=== PATIENT | male | born 1950 | race Caucasian/White ===

== ENCOUNTER → 2017-02-10 | Outpatient (CLI) | payer MEDICARE, OTHER ==
[~2017-02-10] MED LIST: ASPI81TA2 PO; GABA-586 PO; HYDR-971 PO; METF500T4 PO
--- NOTE | 2017-02-10 16:15 | KCIC ---
PROCEDURE Single-view chest. HISTORY Positive TB test COMPARISON April 20, 2015 FINDINGS Single-view of the chest is submitted. There is no infiltrate, pleural fluid, pneumothorax. Heart size is stable, within normal limits. Cervical fusion hardware is not fully included. IMPRESSION 1. There is no evidence of acute cardiopulmonary disease. There are no radiographic findings suggestive of active tuberculosis. Electronically signed by: Ashok Salazar MD (February 10, 2017 16:14:26)
== END | disposition home or self-care (01) ==
LOC: KCIC 15:50
PROVIDERS: ATTEND Family Medicine
DX: R76.11 Nonspecific reaction to tuberculin skin test without active tuberculosis (principal)
CPT/HCPCS: 71010

== ENCOUNTER → 2017-06-10 | Outpatient (CLI) | payer OTHER ==
[~2017-06-10] MED LIST changes: +ASPI-630 PO; -ASPI81TA2 PO
--- NOTE | 2017-06-11 09:51 | KCIC ---
MRI Cervical Spine Without Contrast History: Chronic neck pain, previous surgery, intermittent bilateral radiculopathy Technique: Multiplanar, multi sequential noncontrast MR imaging was performed of the cervical spine. Comparison: April 09, 2016 Findings: There is motion degradation. There again has been anterior cervical fusion C5, C6, C7. Exam does not accurately evaluate integrity of hardware. Interbody fusion is not apparent at these levels. Cervical cord caliber is within normal limits, no obvious or expansile signal abnormality allowing for motion artifact. Cervical vertebral body stature is preserved. AP alignment is similar, negligible anterior spondylolisthesis C3-4 and C7-T1. There is mild reversal of the lordotic curvature. There is some fluid associated with the right C1-C2 lateral mass articulation. C2-C3: Spinal canal and neural foramina are adequate. There is mild to moderate left facet degenerative change. C3-C4: There is left greater than right facet hypertrophic change. Central canal is borderline 10 mm. The there is again negligible disc osteophyte complex. There is mild uncovertebral degenerative change greater on the right. There is suspected mild neural foramina compromise bilaterally somewhat greater on the left. C4-C5: There is again broad posterior bulge superimposed on disc osteophyte complex, likely component of small extrusion extending slightly above the intervertebral disc space more centrally. Central canal is narrowed to approximately 7 mm somewhat greater than previously. There is uncovertebral degenerative change. There is fairly severe narrowing of the left neural foramen, likely mild/moderate narrowing proximally on the right. C5-C6: There is again posterior disc osteophyte complex/osteophytes. Central canal is narrowed to 9 to 10 mm with a somewhat greater degree of lateral recess stenosis bilaterally, left greater than right. The there is uncovertebral degenerative change. There is fairly severe left and moderate to severe right neural foramina compromise. C6-C7: There is minimal disc osteophyte complex. Central canal is borderline 10 mm. There is right uncovertebral degenerative change, likely at least mild narrowing of the right neural foramen. Left neural foramen is probably minimally narrowed. C7-T1: There is mild uncovertebral degenerative change. Spinal canal is not significantly narrowed. There is probable at least moderate narrowing of the left neural foramen, right neural foramen adequate. Impression: 1. There again has been anterior cervical fusion C5, C6, C7. 2. There is spinal stenosis to 7 mm at C4-5 somewhat greater than previously in part by bulge, lesser degree of mild spinal stenosis as described at C5-C6. 3. Accurate evaluation of the neural foramina somewhat limited due to motion, suspected multilevel neural foramina compromise as stated due to facet and uncovertebral degenerative change greatest bilaterally at C5-C6, left greater than right at C4-5, and on the left at C7-T1. Electronically signed by: Michael Salazar MD (06/11/2017 9:48 AM) [id number]
== END | disposition home or self-care (01) ==
LOC: KCIC MRI 15:54
PROVIDERS: ATTEND Family Medicine
DX: M50.223 Other cervical disc displacement at C6-C7 level (principal); M50.222 Other cervical disc displacement at C5-C6 level; M50.221 Other cervical disc displacement at C4-C5 level; M48.02 Spinal stenosis, cervical region; G89.29 Other chronic pain
CPT/HCPCS: 72141

== ENCOUNTER → 2017-07-04 | Outpatient (CLI) | payer OTHER ==
[~2017-07-04] MED LIST changes: +HYDR-2762 PO; +HYDR-963 PO; +MELO15TA23 PO; +METF-620 PO; +METH750T2 PO; +MULT1TAB52 PO; +OMEG1CAP43 PO; +OMEP40CA5 PO; +PRAM0.255 PO
--- NOTE | 2017-07-04 10:41 | HP ---
ADMIT DATE: Shaw Schneider dictating for Dr. Juan Marcelino. This is a preop H and P. DATE OF SURGERY: 07/10/2017 HISTORY OF PRESENT ILLNESS: The patient is a pleasant 66-year-old who has noticed increasing burning pain in his neck and with more significant feelings of unsteadiness with walking. He says the neck pain can radiate into his shoulders, and he notices that he is dropping objects from his hands. He rates his pain as an 8-1/2 to 9 out of 10. He says his pain in his neck becomes worse as the day progresses. He is taking [place]. PAST MEDICAL HISTORY: Arthritis, asthma, head/neck injury, diabetes. PAST SURGICAL HISTORY: Cervical surgery in 2009, Achilles tendon repair in 1990. FAMILY HISTORY: Cancer. SOCIAL HISTORY: Retired. . Does not exercise. Denies substance abuse. Denies tobacco use. Drinks coffee. ALLERGIES: No known drug allergies. CURRENT MEDICATIONS: Metformin, meloxicam, [place], gabapentin, fish oil, aspirin, fluticasone propionate, omeprazole, pramipexole, dihydrochloride, multivitamin. REVIEW OF SYSTEMS: A 12-point review of systems was obtained and is noncontributory except for that mentioned above. PHYSICAL EXAMINATION: NEUROSURGERY EXAMINATION: GENERAL APPEARANCE: Alert, pleasant, in no acute distress. HEAD: Normocephalic and atraumatic. NECK AND THYROID: Klnw-oz-gzgcivmo tenderness with palpation of posterior cervical region. SKIN: Warm and dry. MUSCULOSKELETAL: Cervical paraspinal muscle bulk is normal, cervical range of motion is normal range of motion of the upper extremities bilaterally. EXTREMITIES: No clubbing, cyanosis or edema. NEUROLOGIC: Alert and oriented x 3, normal recent and remote memory, strength 5/5 in bilateral upper and lower extremities except 4+/5 right deltoid and a 4+/5 hand grasp bilaterally. Sensory was intact to light touch in the upper and lower extremities, reflexes were present and symmetric in the upper and lower extremities bilaterally, unable to tandem walk. IMAGING: Reviewed. I reviewed her recent cervical MRI scan. On that study, the principal abnormalities are at C4-C5, with the canal now 7 mm. This has worsened since his previous scan done last year when I saw him. He also appears to have moderately severe neural foraminal narrowing at C4-C5. ASSESSMENT: 1. Spinal stenosis, cervical region. 2. Radiculopathy, lumbar region. PLAN: His pain, the stenosis and neural foraminal narrowing worsened at C4-C5. I feel the natural history is clear. I recommended anterior cervical diskectomy and fusion at this level. I spoke with him about the surgery and the risks involved including injury to the esophagus and/or carotid artery. I spoke about the technique of the surgery and the expected postoperative course. He wishes for me to go ahead. We will make the arrangements. JUAN MARCELINO MD DR: TOBI/terrell JOB#: [id number] / [id number]
== END | disposition home or self-care (01) ==
LOC: SURGPAT 13:28
PROVIDERS: ATTEND Neurological Surgery
DX: M48.02 Spinal stenosis, cervical region (principal); M54.12 Radiculopathy, cervical region; M54.16 Radiculopathy, lumbar region
CPT/HCPCS: 87641

== ENCOUNTER 2017-07-10 06:55 | Inpatient (IN) | payer OTHER ==
[2017-07-10] VITALS (9 sets, daily range): BP systolic 136–164; BP diastolic 71–103
[~2017-07-10] VITALS: Ht 188 cm; Wt 133.8 kg
[~2017-07-10 06:55] MED LIST changes: +BACITRACIN 50,000 UNIT in IV NORMAL SALINE 1000ML BAG 1,000 ML IRR ONE; +GELATIN SPONGE SIZE 100. ONE; -HYDR-963 PO; -METH750T2 PO; +THROMBIN TOPICAL 20,000 UNIT SPRAY.SYRN KIT TP ONE
[2017-07-10] MEDS ORDERED: IV RINGERS,LACTATED 1000ML 1,000 ML IV SCH (07:00)
[2017-07-10] MEDS ORDERED: fentaNYL PF VIAL 100 MCG/2 ML VIAL IV PRN ×2 (07:00→12:30)
[2017-07-10] MEDS ORDERED: LIDOCAINE 1% PF 2 ML VIAL. ID PRN (07:00)
[2017-07-10] MEDS ORDERED: PROCHLORPERAZINE 10 MG/2 ML VIAL. IV PRN (07:00)
[2017-07-10] MEDS ORDERED: HYDROmorphone 2 MG/ML VIAL IV PRN (07:00)
[2017-07-10] MEDS ORDERED: ONDANSETRON PF 4 MG/2 ML VIAL. IV PRN ×2 (07:00→12:30)
[2017-07-10] MEDS ORDERED: SUCCINYLCHOLINE 200 MG/10 ML VIAL. ONE (08:15)
[2017-07-10] MEDS ORDERED: ePHEDrine PF IN SALINE 50 MG/5 ML DISP.SYRIN IV ONE (08:15)
[2017-07-10] MEDS ORDERED: REMIFENTANIL 2 MG VIAL. IV ONE (08:15)
[2017-07-10] MEDS ORDERED: fentaNYL PF VIAL 100 MCG/2 ML VIAL ONE (08:16)
[2017-07-10] MEDS ORDERED: ROCURONIUM 100 MG/10 ML VIAL. ONE (08:26)
[2017-07-10] MEDS ORDERED: NEOSTIGMINE METHYLSULFATE 5 MG/5 ML SYRINGE. ONE (09:24)
[2017-07-10] MEDS ORDERED: GLYCOPYRROLATE 1 MG/5 ML VIAL. ONE (09:25)
[2017-07-10] MEDS ORDERED: BUPIVACAINE-EPI 0.25%-1:200000 MPF 30 ML VIAL. INJ ONE (09:43)
[2017-07-10] MEDS ORDERED: DEXAMETHASONE SOD PHOS 20 MG/5 ML VIAL. ONE (09:51)
[2017-07-10] MEDS ORDERED: ONDANSETRON PF 4 MG/2 ML VIAL. ONE (09:51)
[2017-07-10] MEDS ORDERED: PROPOFOL 100 ML IV ONE (09:51)
[2017-07-10] MEDS ORDERED: PROPOFOL 20 ML IV ONE (09:51)
[2017-07-10] MEDS ORDERED: DESFLURANE > 120 MINUTES IH ONE (09:52)
[2017-07-10] MEDS ORDERED: REMIFENTANIL 1 MG VIAL. IV ONE (10:44)
[2017-07-10] MEDS: fentaNYL PF VIAL 100 MCG/2 ML VIAL IV PRN ×6 (12:23→23:32)
[2017-07-10] MEDS ORDERED: 0.9 % SODIUM CHLORIDE 10 ML DISP.SYRIN. IV PRN (12:30)
[2017-07-10] MEDS ORDERED: CALCIUM CARBONATE 500 MG TAB.CHEW PO PRN (12:30)
[2017-07-10] MEDS ORDERED: MAGNESIUM HYDROXIDE 2,400 MG/30 ML ORAL.SUSP. PO PRN (12:30)
[2017-07-10] MEDS ORDERED: DEXTROSE 50% 25 GM / 50ML DISP.SYRIN. IV PRN (12:30)
[2017-07-10] MEDS ORDERED: diphenhydrAMINE HCL 25 MG CAPSULE PO PRN (12:30)
[2017-07-10] MEDS ORDERED: diphenhydrAMINE 50 MG/ML VIAL IV PRN (12:30)
[2017-07-10] MEDS ORDERED: MAG HYDROX/ALUMINUM HYD/SIMETH 30 ML ORAL.SUSP PO PRN (12:30)
[2017-07-10] MEDS ORDERED: ACETAMINOPHEN 325 MG TABLET. PO PRN (12:30)
[2017-07-10] MEDS ORDERED: HYDROcodone/APAP 7.5/325MG 1 TAB TABLET PO PRN (12:30)
[2017-07-10] MEDS: MORPHINE SULFATE 4 MG/ML DISP.SYRIN. IV PRN ×4 (13:14→13:50)
--- NOTE | 2017-07-10 13:30 | OP ---
DATE OF SURGERY: 07/10/2017 PREOPERATIVE DIAGNOSES: Cervical herniated disc C4-C5 with cervical spinal stenosis and cervical myelopathy. POSTOPERATIVE DIAGNOSES: Cervical herniated disc C4-C5 with cervical spinal stenosis and cervical myelopathy. OPERATION PERFORMED: Anterior cervical microdiscectomy, C4-C5; anterior cervical interbody fusion, C4-C5 with allograft bone; anterior cervical plate, C4 and C5. The operation was done with EMG monitoring, SSEP monitoring, NIMS monitoring, motor-evoked potentials, fluoroscopy and microscopic dissection. SURGEON: Juan Marcelino M.D. [employer] EQUIPMENT MECHANIC: GARRY Lua assisted with the surgery, assisted with the exposure, the microdiscectomy, placement of the interbody fusion cage, placement of plate and closure. OPERATIVE INDICATIONS: The patient is a very pleasant 66-year-old man who developed intractable neck and shoulder pain along with unsteadiness, which was progressive. He failed conservative measures. On imaging studies, he had undergone a previous fusion from C5 through C7 and this was the adjacent segment above, where there was posterior disc bulging/herniation and spinal cord compression. I recommended anterior cervical microdiscectomy and fusion. I spoke with him about the surgery, the risks, technique and the expected postoperative course and he wished for me to go ahead. DESCRIPTION OF PROCEDURE: Following general endotracheal anesthesia, the patient was positioned supine on the operating room table. The anterior cervical region was prepped and draped in a standard fashion. A GlideScope was used to intubate the patient to avoid any movement of the neck by anesthesia. The anterior cervical region was prepped and draped in the standard fashion. DIXIE hose and AV impulse boots were applied for DVT prophylaxis. A microscope was draped. Fluoroscopy was draped and brought into the field. The monitoring was established. Ancef 2 grams given less than 1 hour prior to initiation of surgery. Using fluoroscopic guidance, an incision was made in the skin crease directly over the C4-C5 interspace and dissected down to skin and subcutaneous tissue and dissected along the medial aspect of the sternocleidomastoid and carotid artery sheath down the anterior cervical vertebral body, reflecting the trachea and esophagus contralaterally. I went through the scar and exposed the superior portion of the previously placed plate as well as the C4-C5 interspace and the bottom portion of the C4 vertebral body. I removed one of the screws from the C5, C6 and C7 plate. He did have a solid fusion in this area. I placed distraction pin in this location and then one in the midline in C4. I did, at this time, place lateral retractors which I wedged in the longus colli muscle and I developed an excellent exposure and I brought in the microscope. I incised the anterior annulus with 11 blade. I performed discectomy with pituitary rongeurs. There were significant degenerative change. Posteriorly, there was spurring which I drilled away with the high-speed air drill and then behind this was extruded disc fragments in the anterior epidural space, which I began to tease back and remove. There was a large piece of cartilage as well which pushed down on the dura and I gently peeled this back with a micro blunt hook and then used the 1 and 2 mm micro Kerrison's to trim this away. There were multiple disc fragments, again which I grasped and gently teased back and removed. There was no problem with the monitoring. There were no difficulties with this portion, although it was quite delicate work. I, at this point, then could see that the dura had returned to a much more normal position. The fragments of disc had been removed. I scraped cartilaginous endplate. I placed an interbody fusion bone block measuring 7 mm, which was tapped into position after using trials to assure that it could be safely and easily placed. I then placed an anterior plate of 20 mm and four 15-mm screws and was able to buttress this plate up against the previously placed plate inferiorly and superiorly. There was significant bone spurring and I trimmed some of this away to allow the plate to move closer to the anterior surface of the bone of C4. The screws were placed and locked. I was quite pleased with the position of the plate. I irrigated copiously during this time. Prior to placement of the interbody fusion cage, I assured myself of absolutely perfect hemostasis in the anterior epidural space and that there was no bone bleeding. Then, after the plate was placed, I did remove the retractors and assured myself excellent hemostasis in the soft tissue anterior to the vertebral bodies. After assuring myself of hemostasis, I then closed the wound in layers with absorbable suture and skin was closed with 4-0 subcuticular stitch. I felt the surgery went very well. I was quite pleased. JUAN Negrito MARCELINO MD DR: Luis JOB#: [id number] / [id number] GABRIELA
[2017-07-10] MEDS: POTASSIUM CL 20MEQ-0.45% NACL 1,000 ML IV SCH (14:30)
[2017-07-10] MEDS: METHOCARBAMOL 750 MG TABLET PO SCH ×2 (14:42→21:19)
[2017-07-10] MEDS: HYDROcodone/APAP 7.5/325MG 1 TAB TABLET PO PRN (14:43)
[2017-07-10] MEDS ORDERED: PRAMIPEXOLE 0.25 MG TABLET. PO SCH (21:00)
[2017-07-10] MEDS: DOCUSATE SODIUM 100 MG CAPSULE. PO SCH (21:19)
[2017-07-11] MEDS: fentaNYL PF VIAL 100 MCG/2 ML VIAL IV PRN ×2 (02:44→08:43)
[2017-07-11 02:54] VITALS: BP 142/82
[2017-07-11] MEDS: POTASSIUM CL 20MEQ-0.45% NACL 1,000 ML IV SCH (03:50)
[2017-07-11] MEDS: HYDROcodone/APAP 7.5/325MG 1 TAB TABLET PO PRN ×2 (04:26→08:41)
[2017-07-11 06:32] VITALS: BP 135/74
[2017-07-11] MEDS ORDERED: PANTOPRAZOLE 40 MG TABLET.DR. PO SCH (07:30)
[2017-07-11] MEDS: DOCUSATE SODIUM 100 MG CAPSULE. PO SCH (08:40)
[2017-07-11] MEDS: METHOCARBAMOL 750 MG TABLET PO SCH (08:40)
[2017-07-11] MEDS ORDERED: OMEGA-3 FATTY ACIDS/FISH OIL 1,000 MG CAPSULE. PO SCH (09:00)
[2017-07-11] MEDS ORDERED: MULTIVITAMIN with MINERAL TABLET. PO SCH (09:00)
[2017-07-11] MEDS ORDERED: ASPIRIN CHEWABLE 81 MG TABLET. PO SCH (09:00)
--- NOTE | 2017-07-11 09:44 | DISCH ---
DISCHARGE INSTRUCTIONS Condition on Discharge Condition on Discharge: Stable Activity After Discharge Activity Instructions for Disc: Activity as tolerated, Avoid exertion Other activity instructions: no driving for a week Bathing Instructions: Shower-keep dressing dry Lifting Instructions after Dis: No heavy lifting, No pulling or pushing, Do not lift >10 pounds Diet after Discharge Additional Diet Restrictions: resume home diet Wound Incision Care Wound/Incision Care: Ice to area for comfort Other wound/incision instructi: may remove dressing in 48 hrs if dry then may shower- no soaking Contacting the after DC Call your doctor for: Concerns you may have Follow-Up Follow up with: Dr. Marcelino's nurse [phone] in 2 weeks ADARSH MARCELINO MD Jul 11, 2017 09:44
[2017-07-11] MEDS ORDERED: HYDR-963 PO (09:47)
[2017-07-11] MEDS ORDERED: METH750T2 PO (09:47)
[2017-07-11 11:00] VITALS: BP 135/74
--- NOTE | 2017-07-11 13:49 | PATHOLOGY ---
PATHOLOGY REPORT * * * * * * * * FINAL DIAGNOSIS: Segments of fibrocartilaginous tissue, cervical disc: - Degenerative changes. (JPM:pit; 07/11/2017) COMMENT: There is no evidence of an acute inflammatory process or malignancy. (JPM:pit; 07/11/2017) REPORT ELECTRONICALLY SIGNED BY: Bravo Alexandre M.D. DATE/TIME: 07/11/2017 13:48 * * * * * * * * GROSS PATHOLOGY: The specimen is received in formalin, labeled "Zachary Servin and cervical disc" and consists of a 1.7 x 1.1 x 0.6 cm aggregate of knox, verdugo, and red fibrocartilaginous tissue fragments. Electric Motor Control Assembler sections are submitted as A1. (ASIA; 07/10/2017) INITIAL CPT CODE(S): A; 49991 Professional services performed [place] [address] Technical services performed by [facility] at [address] [place] [address], [facility] [address], [place] [address]. SPECIMEN(S) RECEIVED: A.Cervical disc CLINICAL HISTORY: Cervical stenosis, radiculopathy PATIENT: ZACHARY SERVIN /AGE: 312/18/1950 (Age: 66) PATIENT #: [id number] ALT CASE #: SPECIMEN COLLECTION DATE: 07/10/2017 SPECIMEN RECEIVED DATE: 07/10/2017 [facility] - [address] [place] [address] - PHONE: [phone] * * * END OF REPORT * * *
--- NOTE | 2017-07-11 17:18 | HP ---
ADMIT DATE: 07/10/2017 Shaw Schneider dictating for Dr. Juan Marcelino. This is a preop H and P. DATE OF SURGERY: 07/10/2017 HISTORY OF PRESENT ILLNESS: The patient is a pleasant 66-year-old who has noticed increasing burning pain in his neck and with more significant feelings of unsteadiness with walking. He says the neck pain can radiate into his shoulders, and he notices that he is dropping objects from his hands. He rates his pain as an 8-1/2 to 9 out of 10. He says his pain in his neck becomes worse as the day progresses. He is taking [place]. PAST MEDICAL HISTORY: Arthritis, asthma, head/neck injury, diabetes. PAST SURGICAL HISTORY: Cervical surgery in 2009, Achilles tendon repair in 1990. FAMILY HISTORY: Cancer. SOCIAL HISTORY: Retired. . Does not exercise. Denies substance abuse. Denies tobacco use. Drinks coffee. ALLERGIES: No known drug allergies. CURRENT MEDICATIONS: Metformin, meloxicam, [place], gabapentin, fish oil, aspirin, fluticasone propionate, omeprazole, pramipexole, dihydrochloride, multivitamin. REVIEW OF SYSTEMS: A 12-point review of systems was obtained and is noncontributory except for that mentioned above. PHYSICAL EXAMINATION: NEUROSURGERY EXAMINATION: GENERAL APPEARANCE: Alert, pleasant, in no acute distress. HEAD: Normocephalic and atraumatic. NECK AND THYROID: Ctaj-gt-nurpebla tenderness with palpation of posterior cervical region. SKIN: Warm and dry. MUSCULOSKELETAL: Cervical paraspinal muscle bulk is normal, cervical range of motion is normal range of motion of the upper extremities bilaterally. EXTREMITIES: No clubbing, cyanosis or edema. NEUROLOGIC: Alert and oriented x 3, normal recent and remote memory, strength 5/5 in bilateral upper and lower extremities except 4+/5 right deltoid and a 4+/5 hand grasp bilaterally. Sensory was intact to light touch in the upper and lower extremities, reflexes were present and symmetric in the upper and lower extremities bilaterally, unable to tandem walk. IMAGING: Reviewed. I reviewed her recent cervical MRI scan. On that study, the principal abnormalities are at C4-C5, with the canal now 7 mm. This has worsened since his previous scan done last year when I saw him. He also appears to have moderately severe neural foraminal narrowing at C4-C5. ASSESSMENT: 1. Spinal stenosis, cervical region. 2. Radiculopathy, lumbar region. PLAN: His pain, the stenosis and neural foraminal narrowing worsened at C4-C5. I feel the natural history is clear. I recommended anterior cervical diskectomy and fusion at this level. I spoke with him about the surgery and the risks involved including injury to the esophagus and/or carotid artery. I spoke about the technique of the surgery and the expected postoperative course. He wishes for me to go ahead. We will make the arrangements. JUAN MARCELINO MD DR: TOBI/terrell JOB#: [id number] / [id number]
== END 2017-07-11 11:15 | disposition home or self-care (01) | DRG 472 ==
LOC: OPSVCIP 06:55 → 4 SOUTHEST 14:08
PROVIDERS: ADMIT Neurological Surgery; ATTEND Neurological Surgery
PROC: 0RB30ZZ Excision of Cervical Vertebral Disc, Open Approach (ICD-10-PCS; 2017-07-10)
PROC: 4A11X4G Monitoring of Peripheral Nervous Electrical Activity, Intraoperative, External Approach (ICD-10-PCS; 2017-07-10)
PROC: 0RG10K0 Fusion of Cervical Vertebral Joint with Nonautologous Tissue Substitute, Anterior Approach, Anterior Column, Open Approach (ICD-10-PCS; principal; 2017-07-10 08:30)
DX: M48.02 Spinal stenosis, cervical region (principal); M50.021 Cervical disc disorder at C4-C5 level with myelopathy; E11.9 Type 2 diabetes mellitus without complications; J45.909 Unspecified asthma, uncomplicated; M54.10 Radiculopathy, site unspecified; Z98.1 Arthrodesis status; M19.90 Unspecified osteoarthritis, unspecified site; Z80.9 Family history of malignant neoplasm, unspecified
CPT/HCPCS: 76000; 82962; 88304; C1713; J0330; J0690; J0780; J1100; J2270; J2405; J2704; J2710; J3010; J3490; J7030; J7120; 97530

== ENCOUNTER → 2017-09-16 | Outpatient (CLI) | payer OTHER ==
[~2017-09-16] MED LIST changes: -BACITRACIN 50,000 UNIT in IV NORMAL SALINE 1000ML BAG 1,000 ML IRR ONE; -GELATIN SPONGE SIZE 100. ONE; +HYDR-963 PO; +METH750T2 PO; -THROMBIN TOPICAL 20,000 UNIT SPRAY.SYRN KIT TP ONE
--- NOTE | 2017-09-16 16:14 | KCIC ---
C-SPINE 2 OR 3 VIEWS Clinical Indication: Neck stiffness post cervical fusion. Comparison: MR cervical spine without contrast the tumor 2016. Findings: There is anterior cervical fusion of C5-C7, previously seen on MR. There are interbody spacers at C5/C6 and C6/C7. Since prior study there is anterior fusion of C4-C5. There is bone graft at the disc space of C4/C5. No radiographic evidence of loosening. The prevertebral soft tissues are normal. The alignment is maintained. Straightening of normal cervical lordosis. There is multilevel facet hypertrophy. No acute fracture. IMPRESSION: 1. There has been interval anterior fusion of C4-C5. 2. Previous anterior fusion of C5-C7. 3. No acute bone abnormality. Electronically signed by: Omar Herrera MD (09/16/2017 4:10 PM) [id number]
== END | disposition home or self-care (01) ==
LOC: KCIC 14:39
PROVIDERS: ATTEND Neurological Surgery
DX: Z98.1 Arthrodesis status (principal)
CPT/HCPCS: 72040

== ENCOUNTER → 2021-02-28 | Outpatient (CLI) | payer MEDICARE ==
[~2021-02-28] MED LIST changes: +ATOR10TA60 PO; +FLUT100D2 IH; -GABA-586 PO; +GABA300C18 PO; +GLIM2TAB7 PO; -HYDR-2762 PO; +HYDR-2765 PO; +HYDR-3135 PO; +HYDR-3164 PO; -HYDR-963 PO; -HYDR-971 PO; +HYDR12.575 PO; +LISI-130 PO; -METF-620 PO; +METF10007 PO; +METF500T16 PO; -METF500T4 PO; +METH-562 PO; -METH750T2 PO; +MULT-445 PO; -MULT1TAB52 PO; +OMEP40CA45 PO; -OMEP40CA5 PO; +TRIA15OI TP
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
== END | disposition home or self-care (01) ==
LOC: PNCL 14:21
PROVIDERS: ATTEND Anesthesiology
DX: M54.2 Cervicalgia (principal); M79.602 Pain in left arm; I10 Essential (primary) hypertension; M19.90 Unspecified osteoarthritis, unspecified site; K21.9 Gastro-esophageal reflux disease without esophagitis; E11.9 Type 2 diabetes mellitus without complications; E66.9 Obesity, unspecified; E78.5 Hyperlipidemia, unspecified; J45.909 Unspecified asthma, uncomplicated; Z79.82 Long term (current) use of aspirin; Z79.84 Long term (current) use of oral hypoglycemic drugs; Z79.899 Other long term (current) drug therapy; Z98.890 Other specified postprocedural states
CPT/HCPCS: G0463

== ENCOUNTER → 2021-03-14 | Outpatient (CLI) | payer MEDICARE ==
[~2021-03-14] MED LIST changes: +IOHEXOL 180 MG/ML 10 ML VIAL. ONE; -OMEP40CA45 PO; +OMEP40CA7 PO; +methylPREDNISolone ACETATE 40 MG/ML VIAL. ONE; +methylPREDNISolone ACETATE 80 MG/ML VIAL. ONE
--- NOTE | 2021-03-14 11:15 | PDOC ---
Progress Note - Pain Clinic Date of Service: DOS: DATE: 03/14/21 TIME: 11:12 Diagnosis: Dx: Cervical radiculopathy with cervical degenerative disease and cervical postlaminectomy syndrome History or Present Illness: HPI: 70-year-old male returns for follow-up status post initial evaluation preauthorization for cervical epidural steroid injection. We had tried a Medrol Dosepak and he reports it was about 40% improved after the Medrol Dosepak patient reports still pain in the base the neck left upper extremity and shoulder as it was previously. Patient reports is a 6 on a scale of 10 is worse over the past week 6 on average 4 to sleep and is a 6 today patient ports aching and tight burning pain be radiating and severe at times in the left upper extremity. Patient reports no new motor or sensory deficits no new bowel or bladder incontinence or other complaints. Physical Exam: VS: Blood pressure 120/77 pulse 81 respirations 16 temperature is 97.9 F height is 6 feet 2 inches weight 282 pounds PE: PHYSICAL EXAMINATION: GENERAL: The patient is awake, alert, oriented, appropriate, very pleasant in d emeanor HEENT: Shows normocephalic, atraumatic. Extraocular movements are intact and symmetrical. Oral cavity: Mucous membranes moist and pink. NECK: Shows anterior throat supple without palpable lymphadenopathy noted. Swallow reflex symmetrical. CHEST: Shows normal on inspection. Breath sounds are clear bilaterally. HEART: Shows S1, S2 clear. No murmurs auscultated. ABDOMEN: Soft, nontender, nondistended. No palpable organomegaly is noted. No rebound or guarding demonstrated. BACK: Shows spine grossly in the midline. Normal-appearing cervical lordotic curvature. Cervical paraspinous muscles show symmetrical inspection with palpation some moderate tenderness diffusely in the inferior aspect the cervical paraspinous musculature as well as the superior medial trapezius more on the left than the right but symmetrical. Patient has good rotational motion of the cervical spine with lateral as well as extension flexion without significant difficulty. There is slightly increased thoracic kyphosis, some minor flattening of the lumbar lordotic curvature. EXTREMITIES: Upper extremities show deep tendon reflexes 2+ in the biceps and triceps tendons. Motor exam is 5 on a scale of 5 with right record maker strength, biceps and triceps flexion and 4/5 on the left. Peripheral pulses are 2+ radial. No peripheral edema is noted bilaterally. Upper extremities are warm and dry to touch, equal in color and appearance. SKIN: Shows warm and dry, good turgor. No edema. No sores, rashes or bruising throughout. Procedure: Procedure: Options were discussed with the patient. Patient's old chart was reviewed his his current medication regimen updated current review of systems updated today as well. We will proceed with a cervical epidural steroid injection today with fluoroscopic guidance. Risks were discussed including but not limited to: Bleeding, infection, possibility of epidural hematoma and subsequent neurological compromise, dural puncture, headaches, spinal cord and/or nerve damage, side effects of steroid medication, and poor results regarding pain control. Patient understands and wished to proceed. Patient will return to the clinic in approximately 2 weeks for follow-up, was counseled as to return appointment, activity level, and side effects to be aware of. Medication Injected: Med Injected: Procedure cervical epidural steroid injection at the C6-7 level, using local anesthetic under sterile prep and drape using C-arm fluoroscopic guidance under local anesthesia medications injected ;120 mg Depo-Medrol +5 mL normal saline and 2 mL contrast; condition at discharge is stable patient tolerated procedure well. and had no complications Condition at Discharge: Condition at Discharge: Condition at discharge stable, patient alert procedure well and had no complications. GRETA DIAZ MD Mar 14, 2021 11:14
--- NOTE | 2021-03-14 11:15 | PDOC4 ---
PROCEDURE Procedure Patient was consented for cervical epidural steroid injection. Risks were d iscussed including but not limited to: Bleeding, infection, possibility of epidural hematoma and subsequent neurological compromise, dural puncture, headaches, spinal cord and/or nerve damage, side effects of steroid medication, and poor results regarding pain control. Patient understands and wished to proceed. Procedure cervical epidural steroid injection at the C6-7 level, using local anesthetic under sterile prep and drape using C-arm fluoroscopic guidance under local anesthesia medications injected ;120 mg Depo-Medrol +5 mL normal saline and 2 mL contrast; condition at discharge is stable patient tolerated procedure well. and had no complications GRETA DIAZ MD Mar 14, 2021 11:15
== END | disposition home or self-care (01) ==
LOC: PNCL 10:11
PROVIDERS: ATTEND Anesthesiology
DX: M54.12 Radiculopathy, cervical region (principal); M96.1 Postlaminectomy syndrome, not elsewhere classified; J45.909 Unspecified asthma, uncomplicated; E66.9 Obesity, unspecified; K21.9 Gastro-esophageal reflux disease without esophagitis; M19.90 Unspecified osteoarthritis, unspecified site; E11.9 Type 2 diabetes mellitus without complications; E78.5 Hyperlipidemia, unspecified; I10 Essential (primary) hypertension; Z79.899 Other long term (current) drug therapy; Z79.84 Long term (current) use of oral hypoglycemic drugs; Z79.82 Long term (current) use of aspirin; Z98.49 Cataract extraction status, unspecified eye; Z98.52 Vasectomy status
CPT/HCPCS: 62321; J1030; J1040; Q9965

== ENCOUNTER → 2021-03-28 | Outpatient (CLI) | payer MEDICARE ==
[~2021-03-28] MED LIST changes: -IOHEXOL 180 MG/ML 10 ML VIAL. ONE; -methylPREDNISolone ACETATE 40 MG/ML VIAL. ONE; -methylPREDNISolone ACETATE 80 MG/ML VIAL. ONE
--- NOTE | 2021-03-28 10:47 | PDOC ---
Progress Note - Pain Clinic Date of Service: DOS: DATE: 03/28/21 TIME: 10:44 Diagnosis: Dx: Cervical radiculopathy with cervical degenerative disease and cervical postlaminectomy syndrome History or Present Illness: HPI: 70-year-old male returns for follow-up status post cervical epidural steroid action x1. Patient reports about 75% improvement initially for the first week and a half now about 50% improvement since that time and still about 50% improved overall patient reports the first 2 days he was doing very well after that the pain gradually returned very gradually over the last 2 weeks patient reports about 50% improvement overall with the pain the base the neck left upper extremity shoulder arm and forearm patient reports has not noticed any increased weakness in the left upper extremity and that feels better and is sleeping better at night but still wakes about once every 5 hours patient reports to increase his distance walking doing household activities doing hobbies and setting up new furniture recently was exacerbated the pain to moderate extent in the base of the neck and left upper extremity patient reports the pain is aching and dull in the neck shooting and sharp in the left arm with some tingling and some tremor as well. Patient rates his pain is a 9 on scale 10 is worse over the past week 8 on average 5 its least is 8 today. Patient reports no new motor or sensory deficits no new complaints. Physical Exam: VS: Blood pressure is 113/74 pulse 93 respirations 16 temperature 98.4 F weight is 280 pounds PE: PHYSICAL EXAMINATION: GENERAL: The patient is awake, alert, oriented, appropriate, very pleasant in demeanor HEENT: Shows normocephalic, atraumatic. Extraocular movements are intact and symmetrical. NECK: Shows anterior throat supple without palpable lymphadenopathy noted. CHEST: Shows normal on inspection. Breath sounds are clear bilaterally. HEART: Shows S1, S2 clear. No murmurs auscultated. ABDOMEN: Soft, nontender, nondistended obese. BACK: Shows spine grossly in the midline. Normal-appearing cervical lordotic curvature. There is slightly increased thoracic kyphosis, some minor flattening of the lumbar lordotic curvature. EXTREMITIES: Upper extremities show deep tendon reflexes 2+ in the biceps and triceps tendons. 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 Peripheral pulses are 2+ radial. No peripheral edema is noted bilaterally. Upper extremities are warm and dry to touch, equal in color and appearance. SKIN: Shows warm and dry, good turgor. No edema. No sores, rashes or bruising throughout. Procedure: Procedure: Options were discussed with the patient. Patient's old chart was reviewed his his current medication regimen updated current review of systems updated today as well. We will obtain preauthorization from patient's insurance provider for second cervical epidural steroid injection as patient very well with the first still with a C6-7 dermatomal distribution in the left upper extremity radicular pain. In the meantime patient will continue doing strengthening stretching exercises oral analgesics as currently. Once approved have patient return for translaminar approach C6-7 level cervical epidural steroid injection. Medication Injected: Med Injected: None Condition at Discharge: Condition at Discharge: Condition at discharge is stable. GRETA DIAZ MD Mar 28, 2021 10:47
== END | disposition home or self-care (01) ==
LOC: PNCL 10:02
PROVIDERS: ATTEND Anesthesiology
DX: M50.10 Cervical disc disorder with radiculopathy, unspecified cervical region (principal); M96.1 Postlaminectomy syndrome, not elsewhere classified; E11.9 Type 2 diabetes mellitus without complications; J45.909 Unspecified asthma, uncomplicated; E66.9 Obesity, unspecified; K21.9 Gastro-esophageal reflux disease without esophagitis; M19.90 Unspecified osteoarthritis, unspecified site; Z79.82 Long term (current) use of aspirin; Z79.84 Long term (current) use of oral hypoglycemic drugs; Z79.899 Other long term (current) drug therapy; Z98.890 Other specified postprocedural states
CPT/HCPCS: 99212; G0463

== ENCOUNTER → 2021-04-13 | Outpatient (CLI) | payer MEDICARE ==
[~2021-04-13] MED LIST changes: +IOHEXOL 180 MG/ML 10 ML VIAL. ONE; +methylPREDNISolone ACETATE 40 MG/ML VIAL. ONE; +methylPREDNISolone ACETATE 80 MG/ML VIAL. ONE
--- NOTE | 2021-04-13 09:43 | PDOC ---
Progress Note - Pain Clinic Date of Service: DOS: DATE: 04/13/21 TIME: 09:39 Diagnosis: Dx: Cervical radiculopathy with cervical degenerative disease and cervical postlaminectomy syndrome History or Present Illness: HPI: 70-year-old male returns follow-up status post cervical epidural injection x1 with about 75% improvement. Patient reports pain beginning to return not back to baseline but significantly improved still base the neck and shoulders upper extremities patient returns now for second injection today with pain in proved in the base the neck and upper extremities but still present with a constant pain with activity repetitive motions and some "shakiness" of the upper extremities patient reports is a 10 on scale 10 is worse over the past week 7 on average/and is a 7 today. Patient reports pain is intensified to some extent which is new with a cramping sensation in the arms which was not present previously patient reports no loss of motor function but significant fatigability and again "shakiness" in the upper extremities. Patient reports no new motor or sensory deficits. Physical Exam: VS: Blood pressure 135/79 pulse 88 respirations 18 temperature is 98.4 F weight is 284 pounds. PE: PHYSICAL EXAMINATION: GENERAL: The patient is awake, alert, oriented, appropriate, very pleasant in demeanor HEENT: Shows normocephalic, atraumatic. Extraocular movements are intact and symmetrical. Oral cavity: Mucous membranes moist and pink. NECK: Shows anterior throat supple without palpable lymphadenopathy noted. Swallow reflex symmetrical. CHEST: Shows normal on inspection. Breath sounds are clear bilaterally, no rales or. HEART: Shows S1, S2 clear. No murmurs auscultated. ABDOMEN: Soft, nontender, nondistended, obese. BACK: Shows spine grossly in the midline. Normal-appearing cervical lordotic curvature. Cervical paraspinous but show symmetrical inspection on palpation some moderate tenderness inferiorly in the bilateral cervical paraspinous muscles as well as the superior medial trapezius. Patient shows good rotation of motion of the cervical spine both laterally greater than 45 degrees as well as full extension full forward flexion without significant pain reported. There is slightly increased thoracic kyphosis, some minor flattening of the lumbar lordotic curvature. EXTREMITIES: Upper extremities show deep tendon reflexes 2+ in the biceps and triceps tendons. 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 Peripheral pulses are 2+ radial. No peripheral edema is noted bilaterally. Upper extremities are warm and dry to touch, equal in color and appearance. SKIN: Shows warm and dry, good turgor. No edema. No sores, rashes or bruising throughout. Procedure: Procedure: Discussed with patient. Patient's old chart was reviewed his his regimen updated current review of systems updated today as well. We will proceed with a second in the series cervical epidural steroid injection stable fluoroscopic guidance. Risks were discussed including but not limited to: Bleeding, infection, possibility of epidural hematoma and subsequent neurological compromise, dural puncture, headaches, spinal cord and/or nerve damage, side effects of steroid medication, and poor results regarding pain control. Patient understands and wished to proceed. Return to the clinic in approximate 2 weeks for follow-up, was counseled as to return appointment activity level and side effects to be aware of. Medication Injected: Med Injected: Procedure cervical epidural steroid injection at the C6-7 level, using local a nesthetic under sterile prep and drape using C-arm fluoroscopic guidance under local anesthesia medications injected ;120 mg Depo-Medrol +5 mL normal saline and 2 mL contrast; condition at discharge is stable patient tolerated procedure well. and had no complications Condition at Discharge: Condition at Discharge: Condition at discharge stable, patient alert procedure well and had no complications. GRETA DIAZ MD Apr 13, 2021 09:43
--- NOTE | 2021-04-13 09:44 | PDOC4 ---
Procedure Note: Procedure Note: He was consented for cervical epidural steroid injection. Risks were discussed including but not limited to: Bleeding, infection, possibility of epidural hematoma and subsequent neurological compromise, dural puncture, headaches, spinal cord and/or nerve damage, side effects of steroid medication, and poor results regarding pain control. Patient understands and wished to proceed. Procedure cervical epidural steroid injection at the C6-7 level, using local anesthetic under sterile prep and drape using C-arm fluoroscopic guidance under local anesthesia medications injected ;120 mg Depo-Medrol +5 mL normal saline and 2 mL contrast; condition at discharge is stable patient tolerated procedure well. and had no complications GRETA DIAZ MD Apr 13, 2021 09:44
--- NOTE | 2021-04-13 09:59 | PDOC ---
Progress Note - Pain Clinic Date of Service: DOS: DATE: 04/13/21 TIME: 09:55 Diagnosis: Dx: Lumbar radiculopathy with lumbar degenerative disease lumbar spinal stenosis Left knee joint pain with osteoarthritis History or Present Illness: HPI: 71-year-old female returns for follow-up status post preauthorization for lumbar epidural steroid injection patient obtained that now but reports that her person who drove her to the clinic has to leave soon and does not have time to stay for the procedure today. Patient reports still significant pain in the low back bilateral lower extremities posterior gluteus lateral thighs anterior thighs medial thighs posterior thighs posterior calf and anterior calves into the feet bilaterally worse with walking standing changing positions patient reports a new finding that her legs are giving out and she is actually fallen twice since her last visit patient reports her pain is aching and sharp dull tight shooting cramping and burning also in the left knee significant pain with walking and putting all of her weight on her left leg such as with stairs or curbs. Patient reports otherwise is difficult to sleep difficult with walking and standing legs are stable he still once every 2-3 hours patient reports no loss of motor function again but significant fatigability which is increasing in the lower extremities and left knee. Patient reports that the muscle relaxer she is ezequiel ing tizanidine is causing the pain actually worse when she takes at night. We discussed this and will change the medication to cyclobenzaprine 10 mg patient was given instructions as well as side effects be aware of with the medication. Physical Exam: VS: Blood pressure is 105/70 pulse 79 respirations 18 temperature 98.4 F height is 5 feet 4 inches weight is 177 pounds PE: PHYSICAL EXAMINATION: GENERAL: The patient is awake, alert, oriented, appropriate, very pleasant demeanor HEENT: Shows normocephalic, atraumatic. Extraocular movements are intact and symmetrical. Oral cavity: Mucous membranes moist and pink. NECK: Shows anterior throat supple without palpable lymphadenopathy noted. Swallow reflex symmetrical. CHEST: Shows normal on inspection. Breath sounds are clear bilaterally, no rales or rhonchi. HEART: Shows S1, S2 clear. No murmurs auscultated. ABDOMEN: Soft, nontender, nondistended, obese. BACK: Shows spine grossly in the midline. Normal-appearing cervical lordotic curvature. There is slightly increased thoracic kyphosis, some minor flattening of the lumbar lordotic curvature. Lumbar paraspinous muscles show symmetrical on inspection, on palpation shows some moderate tenderness diffusely throughout the upper, middle and lower distribution of the paraspinous muscles, but without specific trigger points, without radiation of pain. The patient has good rotational motion of the lumbar spine, both laterally as well as extension and flexion without significant difficulty. EXTREMITIES: Lower extremities show deep tendon reflexes 1+ in the patellar and tendo calcaneus tendons. Motor exam is 4 on a scale of 5 with right dorsiflexion, extension, quadriceps and hamstring flexion and 4/5 on the left. Peripheral pulses are 1+ posterior tibial. No peripheral edema is noted bilaterally. Lower extremities are warm and dry to touch, equal in color and appearance. Patient's left knee shows moderate tenderness with palpation over the medial collateral ligament as well as over the patella but with good displacement and without ratcheting or crepitus with range of motion. SKIN: Shows warm and dry, good turgor. No edema. No sores, rashes or bruising throughout. Procedure: Procedure: Options were discussed with the patient. Patient chart reviews her current medication regimen updated current review of systems updated today as well. We will hold on injection at this time as patient has a time constraint with her transportation. Patient return to clinic in approximate 2 weeks we will as scheduled we will plan on lumbar epidural steroid injection at that time. Again we will change tizanidine to cyclobenzaprine patient was given instructions well side effects aware with the medication. Medication Injected: Med Injected: None Condition at Discharge: Condition at Discharge: Condition at discharge is stable. GRETA DIAZ MD Apr 13, 2021 09:59
== END | disposition home or self-care (01) ==
LOC: PNCL 09:05
PROVIDERS: ATTEND Anesthesiology
DX: M50.10 Cervical disc disorder with radiculopathy, unspecified cervical region (principal); M96.1 Postlaminectomy syndrome, not elsewhere classified; J45.909 Unspecified asthma, uncomplicated; E11.9 Type 2 diabetes mellitus without complications; E66.9 Obesity, unspecified; K21.9 Gastro-esophageal reflux disease without esophagitis; M19.90 Unspecified osteoarthritis, unspecified site; Z79.82 Long term (current) use of aspirin; Z79.84 Long term (current) use of oral hypoglycemic drugs; Z79.899 Other long term (current) drug therapy; Z98.890 Other specified postprocedural states
CPT/HCPCS: 62321; J1030; J1040; Q9965

== ENCOUNTER → 2021-08-14 | Outpatient (CLI) | payer MEDICARE ==
[~2021-08-14] MED LIST changes: -IOHEXOL 180 MG/ML 10 ML VIAL. ONE; -methylPREDNISolone ACETATE 40 MG/ML VIAL. ONE; -methylPREDNISolone ACETATE 80 MG/ML VIAL. ONE
--- NOTE | 2021-08-14 12:03 | PDOC ---
Progress Note - Pain Clinic Date of Service: DOS: DATE: 08/14/21 TIME: 11:59 Diagnosis: Dx: Cervical radiculopathy with cervical degenerative disc disease and cervical postlaminectomy syndrome History or Present Illness: HPI: 70-year-old male returns for follow-up last seen April 13, 2021 patient did very well after cervical epidural steroid injection with about 75% improvement initially now down about 50% improvement overall in the base the neck and the bilateral upper extremities right equal to left essentially patient reports the pain is returning now over the past month or so increased with activity raising his arms over his head bilaterally as well as weightbearing repetitive motions with the upper extremities. Patient reports its difficult with sleeping as well at times but generally does not awaken him from sleep most nights. Patient reports his pain is a 10 on scale 10 is worse over the past week 9 on average 7 its least and is a 7 today. Patient reports that the pain is constant aching dull sharp and shooting in the upper extremities traveling into the forearms into the hands and arms somewhat more on the left hand than the right but presen t bilaterally with some tingling and numbness as well but no complete loss of function. Patient continues to perform daily exercises stretching strengthening as he is done from previous physical therapy instruction however the pain has been significant and persistent. Patient taking oral [id number] anti- inflammatories with approximately 10 to 20% improvement. Physical Exam: VS: Blood pressure is 139/85 pulse 81 respirations 18 temperature 98.7 F height is 6 foot 2 inches weight is 290 pounds PE: PHYSICAL EXAMINATION: GENERAL: The patient is awake, alert, oriented, appropriate, very pleasant in demeanor HEENT: Shows normocephalic, atraumatic. Extraocular movements are intact and symmetrical. NECK: Shows anterior throat supple without palpable lymphadenopathy noted. Swallow reflex symmetrical. CHEST: Shows normal on inspection. Breath sounds are clear bilaterally, distant but no rales or rhonchi. HEART: Shows S1, S2 clear. No murmurs auscultated. ABDOMEN: Soft, nontender, nondistended, obese. No palpable organomegaly is noted. BACK: Shows spine grossly in the midline. Normal-appearing cervical lordotic curvature. Cervical paraspinous muscles show symmetrical inspection, palpation some moderate tenderness diffusely bilaterally diffusely about significant radiation no trigger points no atrophy hypertrophy. Patient shows good rotation of motion with some mild tenderness with extension as well as right greater than left lateral rotation and full forward flexion is performed with some mild tenderness in the right side as well but without radiation. There is slightly increased thoracic kyphosis, some minor flattening of the lumbar lordotic curvature. EXTREMITIES: Upper extremities show deep tendon reflexes 2 in the biceps and triceps tendons. Motor exam is 5 on a scale of 5 with right securities adviser, biceps and triceps flexion and 4/5 on the left. Peripheral pulses are 2+ radial. No peripheral edema is noted bilaterally. Upper extremities are warm and dry to touch, equal in color and appearance. SKIN: Shows warm and dry, good turgor. No edema. No sores, rashes or bruising throughout. Procedure: Procedure: Options were discussed with the patient. Patient's old chart was reviewed his current medication regimen updated current review of systems updated today as well. We will preauthorize patient for cervical epidural steroid injection he did very well with these in the past. Patient continue with stretching strength exercises as well as oral analgesics and anti-inflammatories as currently. Once approved we will have him return for a translaminar C6-7 level cervical epidural steroid injection with fluoroscopic guidance. Medication Injected: Med Injected: None Condition at Discharge: Condition at Discharge: Condition at discharge is stable. GRETA DIAZ MD Aug 14, 2021 12:03
== END | disposition home or self-care (01) ==
LOC: PNCL 11:21
PROVIDERS: ATTEND Anesthesiology
DX: M50.10 Cervical disc disorder with radiculopathy, unspecified cervical region (principal); M96.1 Postlaminectomy syndrome, not elsewhere classified; J45.909 Unspecified asthma, uncomplicated; E66.9 Obesity, unspecified; K21.9 Gastro-esophageal reflux disease without esophagitis; M19.90 Unspecified osteoarthritis, unspecified site; E11.9 Type 2 diabetes mellitus without complications; Z79.82 Long term (current) use of aspirin; Z79.899 Other long term (current) drug therapy
CPT/HCPCS: 99212; G0463

== ENCOUNTER → 2021-08-24 | Outpatient (CLI) | payer MEDICARE ==
[~2021-08-24] MED LIST changes: +IOHEXOL 180 MG/ML 10 ML VIAL. ONE; +methylPREDNISolone ACETATE 40 MG/ML VIAL. ONE; +methylPREDNISolone ACETATE 80 MG/ML VIAL. ONE
--- NOTE | 2021-08-24 12:05 | PDOC ---
Progress Note - Pain Clinic Date of Service: DOS: DATE: 08/24/21 TIME: 12:01 Diagnosis: Dx: Cervical radiculopathy with cervical degenerative disease and cervical postlaminectomy syndrome History or Present Illness: HPI: 70-year-old male returns for follow-up status post cervical epidural steroid injection most recently April 13, 2021. Patient did very well with about 60% improvement overall about 75% improvement initially for 2 months and the pain is returning now to about 50 to 60% improvement level overall patient reports pain in the base the neck and shoulders upper extremities right and the left rated as a 10 on scale 10 is worse over the past week 8 on average 7 its least is a 7 today patient reports is burning aching can be constant with activity repetitive motions reading with his head flexed in the position for too long as well as repetitive motions and driving. Patient reports it wakes him from sleep only very rarely reports no loss of motor function with significant fatigability the upper extremities with repetitive motions or weight bearing and reaching. Physical Exam: VS: Blood pressure is 139/86 pulse 80 respirations 18 temperature 98.1 F height is 6 foot 2 inches weight is 289 pounds PE: PHYSICAL EXAMINATION: GENERAL: The patient is awake, alert, oriented, appropriate, very pleasant demeanor HEENT: Shows normocephalic, atraumatic. Extraocular movements are intact and symmetrical. Oral cavity: Mucous membranes moist and pink. NECK: Shows anterior throat supple without palpable lymphadenopathy noted. Swallow reflex symmetrical. CHEST: Shows normal on inspection. Breath sounds are clear bilaterally, no rales or rhonchi. HEART: Shows S1, S2 clear. No murmurs auscultated. ABDOMEN: Soft, nontender, nondistended, obese. No palpable organomegaly is noted. BACK: Shows spine grossly in the midline. Normal-appearing cervical lordotic curvature. Cervical paraspinous muscles show symmetrical inspection, palpation some moderate tenderness diffusely bilaterally diffusely without significant radiation patient is good rotation motion cervical spine both laterally as well as extension flexion without significant pain or limitation in movement. There is slightly increased thoracic kyphosis, some minor flattening of the lumbar lordotic curvature. . EXTREMITIES: Upper extremities show deep tendon reflexes 2+ in the biceps and triceps tendons. Motor exam is 4 on a scale of 5 with right r d engineer, biceps and triceps flexion and 4/5 on the left. Peripheral pulses are 2+ radial. No peripheral edema is noted bilaterally. Upper extremities are warm and dry to touch, equal in color and appearance. SKIN: Shows warm and dry, good turgor. No edema. No sores, rashes or bruising throughout. Procedure: Procedure: Options were discussed with the patient. Patient's old chart was reviewed as his current medication regimen updated current review of systems updated today as well. We will proceed with a cervical epidural steroid injection today with fluoroscopic guidance. Risks were discussed including but not limited to: Bleeding, infection, possibility of epidural hematoma and subsequent neurological compromise, dural puncture, headaches, spinal cord and/or nerve damage, side effects of steroid medication, and poor results regarding pain control. Patient understands and wished to proceed. Patient will return to the clinic in approximately 2 weeks for follow-up, was counseled as return appointment, activity level, and side effects beware of. Medication Injected: Med Injected: Procedure cervical epidural steroid injection at the C6-7 level, using local anesthetic under sterile prep and drape using C-arm fluoroscopic guidance under local anesthesia medications injected ;120 mg Depo-Medrol +5 mL normal saline and 2 mL contrast; condition at discharge is stable patient tolerated procedure well. and had no complications Condition at Discharge: Condition at Discharge: Condition at discharge is stable, patient tolerated procedure well and had no complications. GRETA DIAZ MD Aug 24, 2021 12:05
--- NOTE | 2021-08-24 12:05 | PDOC4 ---
Procedure Note: ICD 10 Code: ICD 10 Code: M54.12 M51.36 772.81 Procedure Note: Patient was consented for cervical epidural steroid injection with fluoroscopic guidance, risks were discussed including but not limited to: Bleeding, infection, possibility of epidural hematoma and subsequent neurological compromise, dural puncture, headaches, spinal cord and/or nerve damage, side effects of steroid medication, and poor results regarding pain control. Patient understands and wished to proceed. Procedure cervical epidural steroid injection at the C6-7 level, using local an esthetic under sterile prep and drape using C-arm fluoroscopic guidance under local anesthesia medications injected ;120 mg Depo-Medrol +5 mL normal saline and 2 mL contrast; condition at discharge is stable patient tolerated procedure well. and had no complications GRETA DIAZ MD Aug 24, 2021 12:05
== END | disposition home or self-care (01) ==
LOC: PNCL 11:04
PROVIDERS: ATTEND Anesthesiology
DX: M50.10 Cervical disc disorder with radiculopathy, unspecified cervical region (principal); M96.1 Postlaminectomy syndrome, not elsewhere classified; E66.9 Obesity, unspecified; K21.9 Gastro-esophageal reflux disease without esophagitis; M19.90 Unspecified osteoarthritis, unspecified site; E11.9 Type 2 diabetes mellitus without complications; Z79.82 Long term (current) use of aspirin; Z79.84 Long term (current) use of oral hypoglycemic drugs; Z79.899 Other long term (current) drug therapy; Z98.890 Other specified postprocedural states
CPT/HCPCS: 62321; J1030; J1040; Q9965; 62323